=== PATIENT | female | born 1970 | race Caucasian/White ===

== ENCOUNTER → 2017-03-31 16:09 | Outpatient (CLI) | payer BC | END | disposition home or self-care (01) | LOC: D.CT 16:09 | DX: R51 Headache (principal) ==

== ENCOUNTER → 2017-04-20 17:01 | Outpatient (CLI) | payer BC | END | disposition home or self-care (01) | LOC: D.MAMMO 08:00 | DX: Z12.31 Encounter for screening mammogram for malignant neoplasm of breast (principal) ==

== ENCOUNTER → 2017-05-26 08:33 | Outpatient (CLI) | payer BC | END | disposition home or self-care (01) | LOC: D.MRI 08:33 | DX: G43.711 Chronic migraine without aura, intractable, with status migrainosus (principal) ==

== ENCOUNTER → 2018-05-17 19:29 | Outpatient (CLI) | payer BC | END | disposition home or self-care (01) | LOC: D.MAMMO 05-13 13:45 | DX: Z12.31 Encounter for screening mammogram for malignant neoplasm of breast (principal) ==

== ENCOUNTER → 2019-03-24 11:26 | Outpatient (CLI) | payer BC ==
[2019-03-25 07:13] LABS: FOLLICLE STIMULATING HORMONE 4.5 mIU/mL (()); LUTEINIZING HORMONE 5.2 mIU/mL (())
== END | disposition home or self-care (01) ==
LOC: D.LAB 11:26
PROVIDERS: ATTEND Student in an Organized Health Care Education/Training Program
DX: N95.9 Unspecified menopausal and perimenopausal disorder (principal)

== ENCOUNTER 2019-06-01 09:00 | Outpatient (CLI) | payer BC ==
[2019-06-27 06:26] VITALS: BMI 24.4
== END 2019-06-01 10:00 | disposition home or self-care (01) ==
LOC: D.MAMMO 09:00
PROVIDERS: ATTEND Student in an Organized Health Care Education/Training Program
DX: Z12.31 Encounter for screening mammogram for malignant neoplasm of breast (principal)

== ENCOUNTER 2019-06-14 09:00 | Outpatient (CLI) | payer BC ==
[2019-06-27 06:26] VITALS: BMI 24.4
== END 2019-06-14 10:00 | disposition home or self-care (01) ==
LOC: D.US 09:00
PROVIDERS: ATTEND Student in an Organized Health Care Education/Training Program
DX: R92.8 Other abnormal and inconclusive findings on diagnostic imaging of breast (principal)

== ENCOUNTER 2019-06-27 05:37 | Day surgery (SDC) | payer BC ==
[~2019-06-27] VITALS: Ht 161.3 cm; Wt 63.6 kg
[2019-06-27] MEDS ORDERED: FAMOTIDINE10 MG PO ×2 (06:19→06:20)
[2019-06-27] MEDS ORDERED: FLUTICASONE PRO16 GM NASAL (06:19)
[2019-06-27] MEDS ORDERED: ZYRTEC10 MG PO (06:19)
[2019-06-27] MEDS ORDERED: CENTRUM SILVER1 EAC3 PO (06:20)
[2019-06-27 06:26] VITALS: Ht 161.3 cm; Wt 63.6 kg
[2019-06-27 06:29] LABS: HCG URINE NEGATIVE (NEGATIVE)
[2019-06-27 06:40] LABS: HEMATOCRIT 38.8 % (36.0-48.0); HEMOGLOBIN 13.1 g/dL (12-16); MCH 34.7 pg (26.0-34.0); MCHC 33.8 g/dL (31.0-37.0); MCV 102.6 fL (80.0-100.0); MEAN PLATELET VOLUME 9.8 fL (7.4-10.4); RBC 3.78 10x6/uL (4.00-5.40); WBC 6.1 10x3/uL (4.8-10.8)
--- NOTE | 2019-06-27 09:20 | NUR ---
PT DC INSTRUCTIONS REVIEWED AT THIS TIME, PT VERBALIZES UNDERSTANDING. PT IV REMOVED AT THIS TIME, INTACT, NO REDNESS OR SWELLING NOTED AT SITE.
--- NOTE | 2019-06-27 09:24 | NUR ---
PT LEAVING OPS AT THIS TIME VIA WC, NAD NOTED.
--- NOTE | 2019-06-27 12:54 | HP ---
PATIENT: GILBERT TAN MEDICAL RECORD: [id number] ACCOUNT: [id number] LOCATION:[place] : 66 ADMISSION DATE: 06/27/19 PCP: DEEJAY PATEL DO HISTORY AND PHYSICAL EXAMINATION The patient is here for colonoscopy. HISTORY OF PRESENT ILLNESS: The patient is now 48. She is here for a screening colonoscopy. She has been having some band-like abdominal pain; however, her abdomen is nontender. The entire examination was performed with in the presence of a superintendent [place]. No rectal bleeding. She has never undergone a colonoscopy in the past. HOME MEDICATIONS: Pepcid, Zyrtecm iron. ALLERGIES: No known drug allergies. SOCIAL HISTORY: Nonsmoker. PAST MEDICAL AND SURGICAL HISTORY: Gastroesophageal reflux. REVIEW OF SYSTEMS: Negative for recent upper respiratory infection. No coronary artery disease. No hypertension. No CVA. No seizures. No diabetes. No thyroid problems. PHYSICAL EXAMINATION: GENERAL: The patient does not appear acutely ill. She does not appear chronically ill. VITAL SIGNS: Reviewed. EARS: External ears appear normal. EYES: Extraocular movements are intact. NECK: Trachea is midline. CHEST: No intercostal retractions. PULMONARY: Nonlabored, no stridor. INTEGUMENT: No rash. ABDOMEN: Nontender. No peritonitis. EXTREMITIES: No peripheral cyanosis. IMPRESSION: Desires screening colonoscopy. PLAN: Screening colonoscopy. TRANSINT:[id number] Voice Confirmation ID: [id number] DOCUMENT ID: [id number] DEEJAY ERWIN MD at 1254 CC: DEEJAY PATEL [id number] DICTATION DATE: 06/27/19805 EXPLORATION MANAGER: 06/27/19 0925 [facility] 06/27/[address] [address]
--- NOTE | 2019-06-27 12:54 | OP ---
PATIENT NAME: GILBERT TAN MEDICAL RECORD: [id number] :66 LOCATION:D.OPS ADMISSION DATE: SURGEON: RICHARDSON ERWIN MD DATE OF OPERATION: 06/27/2019 PREOPERATIVE DIAGNOSIS: Desires screening colonoscopy. POSTOPERATIVE DIAGNOSES: Desires screening colonoscopy with 2 colon polyps; one was on a fold and measured 1.0 cm in greatest dimension. The other was at 10 cm and it measured 5 x 5 mm. Mild pandiverticulosis. PROCEDURES: Total colonoscopy to cecum, hot biopsy forceps polypectomies times 2. SURGEON: Richardson Erwin MD LANDSCAPE FOREMAN: None. BLOOD LOSS: Minimal. ANESTHESIA: IV sedation. COMPLICATIONS: None. The risks, possible complications and alternatives to the procedure were explained to the patient. She elects to proceed. ENDOSCOPIC COURSE: The patient was conveyed to endoscopy suite electively on 06/27/2019. IV sedation was induced by the anesthesia staff. The patient was placed in the Valles position. A digital rectal examination was performed. The examination was normal. The colonoscope was inserted through the anus. It was easily advanced to the cecum. I irrigated and aspirated extensively. I dragged the folds. I utilized normal imaging as well as narrow band imaging. The pullback was greater than a 13-minute pullback. Two hot biopsy forceps polypectomies were performed and the biopsies were retrieved in their entireties. A retroflexed view was obtained in the rectum. I then unretroflexed the scope and removed it under direct vision. I will see the patient in my office in 2-3 weeks. Depending on the pathologic findings, I will determine whether the patient needs to undergo colonoscopy in a year or in 3 years. TRANSINT:[id number] Voice Confirmation ID: [id number] DOCUMENT ID: [id number] RICHARDSON ERWIN MD at 1254 CC: [id number] DICTATION DATE: 06/27/19 0849 FINGERNAIL SCULPTOR: 06/27/19 1108 [facility] 06/27/[address] [address]
== END 2019-06-27 09:24 | disposition home or self-care (01) ==
LOC: D.OPS 05:37
PROVIDERS: Anesthesiology; ATTEND Surgery
DX: Z12.11 Encounter for screening for malignant neoplasm of colon (principal); K63.5 Polyp of colon; N39.3 Stress incontinence (female) (male); Z80.0 Family history of malignant neoplasm of digestive organs; Z97.5 Presence of (intrauterine) contraceptive device; N81.11 Cystocele, midline; N81.6 Rectocele; N95.2 Postmenopausal atrophic vaginitis

== ENCOUNTER → 2019-09-20 17:50 | Outpatient (CLI) | payer BC ==
[2019-09-12 11:22] VITALS: BMI 24.8
[~2019-09-20 17:50] MED LIST: CENTRUM SILVER1 EAC3 PO; FAMOTIDINE10 MG PO; FLUTICASONE PRO16 GM NASAL; ZYRTEC10 MG PO
== END | disposition home or self-care (01) ==
LOC: D.LABREF 17:50
PROVIDERS: ATTEND Urology
DX: N39.0 Urinary tract infection, site not specified (principal)

== ENCOUNTER → 2019-10-10 17:28 | Outpatient (CLI) | payer BC ==
[2019-09-12 11:22] VITALS: BMI 24.8
== END | disposition home or self-care (01) ==
LOC: D.LABREF 17:28
PROVIDERS: ATTEND Urology
DX: N39.0 Urinary tract infection, site not specified (principal)

== ENCOUNTER → 2019-12-13 21:12 | Outpatient (CLI) | payer MEDICARE ==
[2019-09-12 11:22] VITALS: BMI 24.8
== END | disposition home or self-care (01) ==
LOC: D.MAMMO 09:00
PROVIDERS: ATTEND Student in an Organized Health Care Education/Training Program
DX: R92.8 Other abnormal and inconclusive findings on diagnostic imaging of breast (principal)